=== PATIENT | female | born 1970 | race Caucasian/White ===

== ENCOUNTER 2023-09-20 10:34 | Emergency (ER) | payer OTHER ==
[2023-09-20 11:06] VITALS: PULSE 72; RESP 18; TEMP 97; O2SAT 96
--- NOTE | 2023-09-20 11:44 | ERPHSYRPT ---
- History of Present Illness Time Seen by Provider: 09/20/23 11:30 Source: patient Exam Limitations: no limitations Patient Subjective Stated Complaint: PT HERE FOR RIGHT HAND PAIN FOR A COUPLE DAYS NOW, DENIES ANY INJURY, SHE STATES SHE HAS SEEN A SPECIALIST FOR THIS BE FORE, Triage Nursing Assessment: PT ALERT, WALKED IN, RESP EASY, SKIN W/D/P. HAS SLIGHT SWELLING TO RIGHT FINGERS, STRONG RADIAL PULSE, ABLE TO MOVE FINGERS WELL Physician History: 53yo f presents for r hand/wrist pain, tingling, numbness. 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 Pt states the pain is worse when working w/ her hands, states the numbness tends to worsen at night, radiates across the palmar aspect of the hand and involves all fingers. Pt denies any recent trauma to the area, denies cp, soa, n/v/abdominal pain. Pt reports possible hx of RA but is not great historian. Occurred: yesterday Severity of Pain-Max: moderate Severity of Pain-Current: moderate Extremities Pain Location: shoulder: right, wrist: right, hand: right Modifying Factors: Improves With: cold therapy, rest Associated Symptoms: none Allergies/Adverse Reactions: No Known Drug Allergies Allergy (Unverified 01/23/12 05:44) Home Medications: estradioL [Estrace] 2 mg PO DAILY 01/23/12 [History] Hx Tetanus, Diphtheria Vaccination/Date Given: No Hx Influenza Vaccination/Date Given: No Hx Pneumococcal Vaccination/Date Given: No Immunizations Up to Date: Yes Travel Risk - International Travel Have you traveled outside of the country in past 3 weeks: No - Coronavirus Screening Are you exhibiting any of the following symptoms?: No Close contact with a COVID-19 positive Pt in past 14-21 Days: No - Vaccine Status Have you recieved a Covid-19 vaccination: No - Past Medical History Pertinent Past Medical History: No - Past Surgical History Past Surgical History: Yes Female Surgical History: Hysterectomy - Social History Smoking Status: Current every day smoker Exposure to second hand smoke: Yes Drug Use: none Patient Lives Alone: No - Nursing Vital Signs Nursing Vital Signs: Initial Vital Signs Blood Pressure 130/94 09/20/23 11:00 O2 Sat by Pulse Oximetry 95 09/20/23 11:00 Pain Scale Pain Intensity 10 - Physical Exam General Appearance: no apparent distress Cardiovascular/Respiratory Exam: chest non-tender, normal breath sounds Abdominal Exam: non-tender Elbow/Forearm Exam: normal inspection, non-tender, no evidence of injury, normal ROM Wrist Exam: no evidence of injury, limited ROM Hand Exam: normal inspection, no evidence of injury (Tinel test positive right ), limited ROM (decreased flexion 2/2 pain) Neuro/Tendon Exam: normal sensation, normal tendon functions, no evidence tendon injury Mental Status Exam: alert, oriented x 3 SpO2: 96 Ordered Tests: Active Orders 24 hr Category Date Time Status FOREARM Stat Exams 09/20/23 12:05 Taken HAND (MINIMUM 3 VIEWS) Stat Exams 09/20/23 12:05 Taken Medication Summary Discontinued Medications Generic Name Dose Route Start Last Admin Trade Name Freq PRN Reason Stop Dose Admin Ketorolac Tromethamine 30 mg 09/20/23 12:35 09/20/23 12:44 Ketorolac Tromethamine 30 Mg/Ml Inj IM 09/20/23 12:36 30 mg STAT ONE Administration Ketorolac Tromethamine Confirm 09/20/23 12:41 Ketorolac Tromethamine 30 Mg/Ml Inj Administered 09/20/23 12:42 Dose 30 mg .ROUTE .[employer]MED ONE - Progress Progress: improved Progress Note: 09/20/23 11:44 xr hand, forearm ordered plan for toradol for pain 09/20/23 12:57 XR imaging negative for acute fx given toradol injection IM w/ some relief; instructed to avoid NSAIDs at home x 72h instructed to f/u w/ PCP for further w/u, likely carpal tunnel vs RA complications return precautions given pt voiced understanding and had no further questions 09/20/23 13:00 Medical Desision Making - Diagnostic Testing Diagnostic test were ordered, analyzed, and reviewed by me: Yes Radiological Interpretation: Interpreted by me, Reviewed by me - Risk of complications Minimal Risk: Minimal risk of morbidity - Departure Departure Disposition: Home Clinical Impression: Wrist pain, right, Carpal tunnel syndrome of right wrist Condition: Stable Critical Care Time: No Referrals: [facility] [employer] [Primary Care Provider] - Follow up/PCP as directed Additional Instructions: plan for dc home, instructed to use additional duoneb treatment at home prn as needed for worsened cough, pt instructed to f/u w/ [employer] 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
[2023-09-20 12:03] VITALS: BP 143/72
[2023-09-20] MEDS ORDERED: TORAdol 30 mg Injection IM ONE (12:35)
[2023-09-20] MEDS ORDERED: TORAdol 30 mg Injection ONE (12:41)
--- NOTE | 2023-09-20 19:03 | XRAY ---
Indication: Pain. No known injury. Comparison: None 2 view right forearm obtained. No bony, articular, or soft tissue abnormalities.
--- NOTE | 2023-09-20 19:05 | XRAY ---
Indication: Pain. No known injury. Comparison: None 3 view right hand obtained. No bony, articular, or soft tissue abnormalities.
== END 2023-09-20 13:31 | disposition home or self-care (01) ==
LOC: ED 10:34
DX: M25.531 Pain in right wrist (principal); G56.01 Carpal tunnel syndrome, right upper limb; M79.641 Pain in right hand; Z28.310 Unvaccinated for COVID-19; Z72.0 Tobacco use
CPT/HCPCS: 73090; 73130; 96372; 99283; J1885